=== PATIENT | male | born 1990 | race Two or more races ===

== ENCOUNTER 2016-08-29 10:25 | Emergency (ER) | payer MEDICAID, OTHER ==
[~2016-08-29] VITALS: Ht 162.6 cm; Wt 136.1 kg
[2016-08-29] MEDS ORDERED: ACETAMINOPHEN 325 MG TAB PO ONE ×2 (10:48→11:00)
[2016-08-29 10:49] VITALS: BP 146/69
== END 2016-08-29 11:24 | disposition home or self-care (01) ==
LOC: ER 10:25
DX: J40 Bronchitis, not specified as acute or chronic (principal)